=== PATIENT | male | born 1975 | race Caucasian/White ===

== ENCOUNTER 2022-08-11 14:02 | Emergency (ER) | payer MEDICAID, OTHER ==
[~2022-08-11] VITALS: Ht 162.6 cm; Wt 70.0 kg
[2022-08-11] MEDS ORDERED: CEPH500T MT (15:04)
[2022-08-11] MEDS ORDERED: SULF1TAB48 MT (15:04)
[2022-08-11] MEDS ORDERED: IBUP-2028 MT (15:04)
[2022-08-11] MEDS ORDERED: TOPUD PO (15:04)
[2022-08-11] MEDS ORDERED: CEPHALEXIN 250MG CAPSULE PO ONE (15:15)
[2022-08-11] MEDS ORDERED: IBUPROFEN 400MG TABLET PO ONE (15:15)
[2022-08-11] MEDS ORDERED: ACETAMINOPHEN 325MG TABLET PO ONE (15:15)
[2022-08-11] MEDS ORDERED: SULFAMETHOXAZOLE/TRIMETHOPRIM 800/160MG TABLET PO ONE (15:15)
[2022-08-11 15:22] VITALS: BP 205/89
== END 2022-08-11 15:31 | disposition home or self-care (01) ==
LOC: ER 14:02
DX: L03.113 Cellulitis of right upper limb (principal); I10 Essential (primary) hypertension; E78.00 Pure hypercholesterolemia, unspecified; E11.9 Type 2 diabetes mellitus without complications; F15.10 Other stimulant abuse, uncomplicated; F10.21 Alcohol dependence, in remission
CPT/HCPCS: 99284

== ENCOUNTER 2023-06-23 15:11 | Emergency (ER) | payer MEDICAID ==
[~2023-06-23] VITALS: Ht 149.9 cm; Wt 53.2 kg
[~2023-06-23 15:11] MED LIST: CEPH500T MT; IBUP-2028 MT; SULF1TAB48 MT; TOPUD PO
[2023-06-23 15:16] VITALS: O2SAT 98
[2023-06-23 16:55] LABS: CLARITY URINE CLEAR (CLEAR); COLOR URINE DARK YELLOW (YELLOW); GLUCOSE URINE 1+ (NEGATIVE); KETONES URINE 1+ (NEGATIVE); LEUKOCYTE ESTERASE URINE NEGATIVE (NEGATIVE); NITRITE URINE POSITIVE (NEGATIVE); OCCULT BLOOD URINE NEGATIVE (NEGATIVE); PROTEIN URINE 4+ (NEGATIVE); SPECIFIC GRAVITY URINE 1.023 (1.005-1.030)
[2023-06-23 16:59] LABS: YEAST URINE NONE SEEN
[2023-06-23] MEDS ORDERED: CEFP200T13 MT (17:42)
[2023-06-23 17:49] LABS: RBC URINE NONE SEEN /hpf (0-2); SQUAMOUS EPITHELIAL CELL URINE RARE /lpf (RARE/1+); WBC URINE 0-2 /hpf (0-2)
[2023-06-23 17:51] LABS: BACTERIA URINE 1+
[2023-06-23] MEDS ORDERED: HYDRALAZINE HCL 25MG TABLET PO ONE (18:00)
[2023-06-23] MEDS ORDERED: IBUPROFEN 600MG TABLET PO ONE (18:00)
[2023-06-23 18:33] VITALS: BP 165/79; PULSE 95; RESP 18; TEMP 99
== END 2023-06-23 18:34 | disposition home or self-care (01) ==
LOC: ER 15:11
DX: N39.0 Urinary tract infection, site not specified (principal); F15.10 Other stimulant abuse, uncomplicated; E11.9 Type 2 diabetes mellitus without complications; I10 Essential (primary) hypertension; E78.00 Pure hypercholesterolemia, unspecified
CPT/HCPCS: 81003; 99283

== ENCOUNTER 2023-06-25 16:42 | Emergency (ER) | payer MEDICAID ==
[~2023-06-25] VITALS: Ht 162.6 cm; Wt 80.0 kg
[~2023-06-25 16:42] MED LIST changes: +CEFP200T13 MT
[2023-06-25 16:46] VITALS: TEMP 98.6; O2SAT 98
[2023-06-25 20:51] VITALS: BP 129/73; PULSE 99; RESP 17
== END 2023-06-25 21:01 | disposition home or self-care (01) ==
LOC: ER 16:42
DX: N30.90 Cystitis, unspecified without hematuria (principal); K57.92 Diverticulitis of intestine, part unspecified, without perforation or abscess without bleeding; E11.9 Type 2 diabetes mellitus without complications; E78.00 Pure hypercholesterolemia, unspecified; I10 Essential (primary) hypertension; F15.10 Other stimulant abuse, uncomplicated; Z79.899 Other long term (current) drug therapy
CPT/HCPCS: 74176; 99284; Z7610

== ENCOUNTER 2024-08-25 19:04 | Emergency (ER) | payer MEDICAID ==
[~2024-08-25] VITALS: Ht 152.4 cm; Wt 59.0 kg
[2024-08-25 19:12] VITALS: O2SAT 99
[2024-08-25 20:38] LABS: CHLORIDE 99 mEq/L (98-107); POTASSIUM 3.3 mEq/L (3.5-5.1); SODIUM 135 mEq/L (136-145)
[2024-08-25 20:39] LABS: CALCIUM 9.8 mg/dL (8.7-10.4); CARBON DIOXIDE 28 mEq/L (21-32)
[2024-08-25 20:44] LABS: CREATININE 1.1 mg/dL (0.6-1.3); GLUCOSE 187 mg/dL (70-105); UREA NITROGEN BLOOD 22 mg/dL (9-23)
[2024-08-25] MEDS ORDERED: IBUP-2029 MT (21:27)
[2024-08-25] MEDS: POTASSIUM CHLORIDE 20MEQ TABLET SR PO ONE (21:59)
[2024-08-25 22:01] VITALS: BP 145/80; PULSE 100; RESP 18; TEMP 36.83628; O2SAT 99
== END 2024-08-25 22:01 | disposition home or self-care (01) ==
LOC: ER 19:04
DX: R25.2 Cramp and spasm (principal); E87.6 Hypokalemia; I10 Essential (primary) hypertension; F15.10 Other stimulant abuse, uncomplicated; E11.9 Type 2 diabetes mellitus without complications; Z79.899 Other long term (current) drug therapy
CPT/HCPCS: 36415; 80048; 99283